=== PATIENT | female | born 1975 | race African-American/Black ===

== ENCOUNTER 2024-01-30 16:23 | Emergency (ER) | payer OTHER ==
[~2024-01-30] VITALS: Ht 157.5 cm; Wt 82.6 kg
[2024-01-30 16:51] VITALS: BP 130/87; PULSE 89; RESP 16; TEMP 97.5; O2SAT 99
[2024-01-30 17:00] VITALS: O2SAT 99
[2024-01-30] MEDS ORDERED: FLUORESCEIN OPTH STRIP 1 MG ONE (17:19)
[2024-01-30] MEDS: FLUORESCEIN OPTH STRIP 1 MG OP ONE (17:26)
== END 2024-01-30 17:37 | disposition home or self-care (01) ==
LOC: MED 16:23
DX: L25.9 Unspecified contact dermatitis, unspecified cause (principal); R03.0 Elevated blood-pressure reading, without diagnosis of hypertension
CPT/HCPCS: 99283